=== PATIENT | male | born 1965 | race Two or more races ===

== ENCOUNTER 2018-06-08 21:52 | Inpatient (IN) | payer SELFPAY ==
[2018-06-08] MEDS: IV NORMAL SALINE 1000ML BAG 1,000 ML IV ×2 (22:25→23:21)
[2018-06-08 22:31] LABS: ADD MAN DIFF? YES; BASO # 0.1 x10^3/uL (0.0-0.2); BASO % 1 % (0-3); EOS % 0 % (0-3); HEMATOCRIT 52.5 % (39.0-53.0); HEMOGLOBIN 18.1 g/dL (13.0-17.5); LYMPH # 1.2 x10^3/uL (1.0-4.8); LYMPH % 9 % (24-48); MEAN CORPUSCULAR HEMOGLOBIN 32 pg (25-35); MEAN CORPUSCULAR HGB CONC 35 g/dL (31-37); MEAN CORPUSCULAR VOLUME 92 fL (79-100); MONO # 0.5 x10^3/uL (0.0-1.1); MONO % 4 % (0-9); NEUT % 87 % (31-73); PLATELET COUNT 272 x10^3/uL (140-400); RED CELL DISTRIBUTION WIDTH 13.9 % (11.5-14.5); WHITE BLOOD COUNT 13.8 x10^3/uL (4.0-11.0)
[2018-06-08 22:36] LABS: ANION GAP 21 (6-14); BLOOD UREA NITROGEN 28 mg/dL (8-26); BUN/CREATININE RATIO 8 (6-20); CALCIUM 10.4 mg/dL (8.5-10.1); CARBON DIOXIDE 20 mmol/L (21-32); CHLORIDE 93 mmol/L (98-107); CREATININE 3.5 mg/dL (0.7-1.3); GFR 18.4; GLUCOSE 173 mg/dL (70-99); POTASSIUM 4.4 mmol/L (3.5-5.1); SODIUM 134 mmol/L (136-145)
[2018-06-08 22:42] LABS: ALBUMIN 5.4 g/dL (3.4-5.0); ALBUMIN/GLOBULIN RATIO 1.1 (1.0-1.7); ALK PHOS 181 U/L (46-116); ALT (SGPT) 61 U/L (16-63); AST (SGOT) 31 U/L (15-37); CREATINE KINASE 280 U/L (39-308); TOTAL BILIRUBIN 1.1 mg/dL (0.2-1.0); TOTAL PROTEIN 10.2 g/dL (6.4-8.2)
[2018-06-08 22:57] LABS: % BANDS 2 % (0-9); % LYMPHS 6 % (24-48); % MONOS 2 % (0-10); % SEGS 90 % (35-66); PLT ESTIMATE ADEQUATE (ADEQUATE)
[2018-06-08 23:22] LABS: BILIRUBIN,URINE SMALL (NEG); CLARITY,URINE CLOUDY; COLOR,URINE AMBER; GLUCOSE,URINE NEGATIVE (NEG); NITRITE,URINE NEGATIVE (NEG); PROTEIN,URINE 100 mg/dL (NEG-TRACE); UROBILINOGEN,URINE 0.2 mg/dL (0.2 mg/dL)
[2018-06-08 23:29] LABS: BACTERIA,URINE 0 /HPF (0-FEW); HYALINE CASTS, URINE MANY /HPF; RBC,URINE OCC /HPF (0-2); SQUAMOUS EPITHELIAL CELL,UR OCC /LPF; WBC,URINE OCC /HPF (0-4)
[2018-06-09] MEDS ORDERED: ONDANSETRON PF 4 MG/2 ML VIAL. IV ×2 (00:15→08:15)
[2018-06-09] MEDS: IV NORMAL SALINE 1000ML BAG 1,000 ML IV ×3 (00:51→17:26)
[2018-06-09 04:58] LABS: ADD MAN DIFF? NO
[2018-06-09 05:01] LABS: BASO % 0 % (0-3); EOS % 0 % (0-3); HEMATOCRIT 39.9 % (39.0-53.0); HEMOGLOBIN 13.9 g/dL (13.0-17.5); LYMPH # 1.8 x10^3/uL (1.0-4.8); LYMPH % 17 % (24-48); MEAN CORPUSCULAR HEMOGLOBIN 32 pg (25-35); MEAN CORPUSCULAR HGB CONC 35 g/dL (31-37); MEAN CORPUSCULAR VOLUME 93 fL (79-100); MONO # 0.6 x10^3/uL (0.0-1.1); MONO % 5 % (0-9); NEUT # 8.6 x10^3uL (1.8-7.7); NEUT % 78 % (31-73); PLATELET COUNT 206 x10^3/uL (140-400); RED BLOOD COUNT 4.32 x10^6/uL (4.30-5.70); RED CELL DISTRIBUTION WIDTH 13.7 % (11.5-14.5); WHITE BLOOD COUNT 11.1 x10^3/uL (4.0-11.0)
[2018-06-09] MEDS: HYDROcodone/APAP 5/325MG 1 TAB TABLET PO ×2 (05:17→11:49)
[2018-06-09 05:45] LABS: ANION GAP 14 (6-14); BLOOD UREA NITROGEN 24 mg/dL (8-26); CALCIUM 7.8 mg/dL (8.5-10.1); CARBON DIOXIDE 21 mmol/L (21-32); CHLORIDE 103 mmol/L (98-107); CREATININE 1.7 mg/dL (0.7-1.3); GFR 42.4; GLUCOSE 141 mg/dL (70-99); POTASSIUM 4.1 mmol/L (3.5-5.1); SODIUM 138 mmol/L (136-145)
[2018-06-09] MEDS ORDERED: ONDANSETRON ODT 4 MG TAB.RAPDIS. PO (08:15)
[2018-06-09] MEDS ORDERED: ACETAMINOPHEN 500 MG TABLET PO (08:15)
[2018-06-09] MEDS: MULTIVITAMIN with MINERAL TABLET. PO (09:39)
[2018-06-10] MEDS: IV NORMAL SALINE 1000ML BAG 1,000 ML IV ×2 (00:05→08:15)
[2018-06-10 05:19] LABS: ALBUMIN 2.7 g/dL (3.4-5.0); ANION GAP 9 (6-14); BLOOD UREA NITROGEN 17 mg/dL (8-26); CALCIUM 7.1 mg/dL (8.5-10.1); CARBON DIOXIDE 22 mmol/L (21-32); CHLORIDE 108 mmol/L (98-107); CREATININE 0.8 mg/dL (0.7-1.3); GFR 101.1; GLUCOSE 104 mg/dL (70-99); PHOSPHORUS 2.4 mg/dL (2.6-4.7); POTASSIUM 4.1 mmol/L (3.5-5.1); SODIUM 139 mmol/L (136-145)
[2018-06-10] MEDS: MULTIVITAMIN with MINERAL TABLET. PO (10:12)
== END 2018-06-10 10:49 | disposition home or self-care (01) | DRG 683 ==
LOC: 5 SOUTH 23:42 → ER 21:52
DX: N17.9 Acute kidney failure, unspecified (principal); M62.82 Rhabdomyolysis; E86.0 Dehydration; T67.2XXA Heat cramp, initial encounter; X30.XXXA Exposure to excessive natural heat, initial encounter; E86.1 Hypovolemia; D72.828 Other elevated white blood cell count
CPT/HCPCS: 36415; 80048; 80053; 80069; 81001; 82550; 85007; 85025; 87086; 96360; 96361; 99285; 99285-25; J7030

== ENCOUNTER 2020-01-28 19:10 | Emergency (ER) | payer SELFPAY ==
[~2020-01-28] VITALS: Ht 167.6 cm; Wt 72.7 kg
[~2020-01-28 19:10] MED LIST: MULT-245 PO; PANT20TA2 PO; PROM25TA10 PO
[2020-01-28 20:10] VITALS: BP 183/78
[2020-01-28] MEDS ORDERED: IBUPROFEN 200 MG TABLET. PO ONE (21:00)
[2020-01-28 21:38] LABS: INFLUENZA A PATIENT NEGATIVE (NEGATIVE); INFLUENZA B PATIENT NEGATIVE (NEGATIVE)
--- NOTE | 2020-01-28 21:43 | PHYS DOC ---
Past Medical History Past Medical History: Hip Fracture Past Surgical History: Other Additional Past Surgical Histo: bilateral hip Smoking Status: Never Smoker Alcohol Use: None Drug Use: None Adult General Chief Complaint Chief Complaint: FLU SYMPTOM HPI HPI Patient is a 54 year old male who presents with 1 day of headache, fever, bodyaches, coughing, nasal congestion. Only medication is been taking his Benadryl. Also on this past Tuesday patient was walking and he stepped on a nail that went through his shoe on his left foot. Patient rates his overall pain a 9 out of 10. Review of Systems Review of Systems Constitutional: fever or chills [] HENT: nasal congestion or sore throat [] Respiratory: cough or denies shortness of breath [] Musculoskeletal: Bodyaches. Denies back pain or joint pain. Stepped on nail with left foot. [] Neurologic: headache, denies focal weakness or sensory changes [] All other systems were reviewed and found to be within normal limits, except as documented in this note. Current Medications Current Medications Current Medications Medications (Trade) Dose Ordered Sig/Kely Start Time Stop Time Status Last Admin Dose Admin Ibuprofen (Motrin) 600 mg 1X ONCE 01/28/20 21:00 01/28/20 21:01 DC 01/28/20 20:56 600 MG Allergies Allergies Allergies Coded Allergies Type Severity Reaction Last Updated Verified No Known Drug Allergies 06/08/18 No Physical Exam Physical Exam Constitutional: Well developed, well nourished, no acute distress, non-toxic ap pearance. [] HENT: Normocephalic, atraumatic, bilateral external ears normal, oropharynx moist, no oral exudates, nose normal. [] Eyes: PERRLA, EOMI, conjunctiva normal, no discharge. [] Neck: Normal range of motion, no tenderness, supple, no stridor. [] Cardiovascular:Heart rate regular rhythm, no murmur [] Lungs & Thorax: Bilateral breath sounds clear to auscultation [] Abdomen: Bowel sounds normal, soft, no tenderness, no masses, no pulsatile masses. [] Skin: Warm, dry, no erythema, no rash. Puncture virginie to pad of left foot. [] Back: No tenderness, no CVA tenderness. [] Extremities: No tenderness, no cyanosis, no clubbing, ROM intact, no edema. [] Neurologic: Alert and oriented X 3, normal motor function, normal sensory function, no focal deficits noted. [] Psychologic: Affect normal, judgement normal, mood normal. [] Current Patient Data Vital Signs Vital Signs Date Time Temp Pulse Resp B/P (MAP) Pulse Ox O2 Delivery O2 Flow Rate FiO2 01/28/20 20:10 97.8 88 16 183/78 (113) 99 97.8 Lab Values Laboratory Tests Test 01/28/20 21:00 Influenza Type A Antigen Negative (NEGATIVE) Influenza Type B Antigen Negative (NEGATIVE) EKG EKG [] Radiology/Procedures Radiology/Procedures [] Course & Med Decision Making Course & Med Decision Making Pertinent Labs and Imaging studies reviewed. (See chart for details) Patient has a puncture virginie to the left foot on the pad of the foot. There is no redness or tenderness and no signs of infection. Pedal pulses strong and present. Cap Refill less than 3 seconds. No swelling of the foot. Patient is walking on the foot. Lungs are clear to auscultation all lobes. Bilateral tympanic are white. Abdomen soft and nontender. Patient denies nausea, vomiting, chest pain, shortness of breath, dizziness, LOC, diarrhea, numbness or tingling, vision changes, weakness. Ambulatory with a steady gait. Alert and oriented. Speaks in full clear sentences. Skin pink warm and dry. Xray read by Dr Tsang as no acute findings Dragon Disclaimer Dragon Disclaimer This electronic medical record was generated, in whole or in part, using a voice recognition dictation system. Departure Departure Impression: Primary Impression: Flu-like symptoms Additional Impression: Puncture wound Disposition: 01 HOME, SELF-CARE Condition: STABLE Referrals: NO PCP (PCP) Patient Instructions: Cough, Adult, Fever, Adult, Puncture Wound, [id number] Additional Instructions: Follow up with primary care provider. Take medications with food and as prescribed. Take tylenol for pain and fever. Scripts Acetaminophen (ACETAMINOPHEN) 500 Mg Tablet 1 TAB PO PRN Q6HRS PRN for pain or fever for 15 Days, #60 TAB 0 Refills Prov: GELA ARTHUR CLIENT RETENTION SPECIALIST 01/28/20 Ciprofloxacin Hcl (CIPRO) 500 Mg Tablet 1 TAB PO BID for 10 Days, #20 TAB 0 Refills Prov: GELA ARTHUR CLIENT RETENTION SPECIALIST 01/28/20 Cephalexin (KEFLEX) 500 Mg Capsule 1 CAP PO BID for 7 Days, #14 CAP 0 Refills Prov: GELA ARTHUR APRN 01/28/20 Problem Qualifiers GELA ARTHUR APRN Jan 28, 2020 21:43
[2020-01-28] MEDS ORDERED: ACET500T68 PO (21:50)
[2020-01-28] MEDS ORDERED: CIPR500T94 PO (21:50)
[2020-01-28] MEDS ORDERED: CEPH-264 PO (21:50)
--- NOTE | 2020-01-28 23:13 | RAD ---
Three-view left foot radiographs 01/28/2020 CLINICAL HISTORY: Patient stepped on nail. AP, lateral and oblique digital radiographs of the left foot were obtained. No fracture or dislocation of the left foot is seen. No radiopaque foreign body is noted. Mild to moderate degenerative changes are seen throughout the interphalangeal joints and first MTP joint of the left foot. IMPRESSION: No fracture or foreign body is seen involving the left foot. Electronically signed by: Jose Phipps MD (01/28/2020 11:10 PM) [id number]
== END 2020-01-28 21:57 | disposition home or self-care (01) ==
LOC: ER 19:10
DX: S91.332A Puncture wound without foreign body, left foot, initial encounter (principal); R50.9 Fever, unspecified; R05 Cough; R51 Headache; Z98.890 Other specified postprocedural states; R09.81 Nasal congestion; W21.31XA Struck by shoe cleats, initial encounter; Y93.89 Activity, other specified; Y92.89 Other specified places as the place of occurrence of the external cause; Y99.8 Other external cause status
CPT/HCPCS: 73630; 87804; 99284